=== PATIENT | male | born 2005 ===

== ENCOUNTER 2025-04-26 11:00 | Inpatient (IN) | payer OTHER ==
[~2025-04-26] VITALS: Ht 185.4 cm; Wt 56.7 kg
[2025-04-26 14:25] LABS: COVID-19 AG NEGATIVE (NEGATIVE)
[2025-04-26 15:11] LABS: RH POSITIVE
[2025-05-04] MEDS ORDERED: VANCOMYCIN HCL 1,000 MG VIAL IR ONE (19:30)
[2025-05-04] MEDS ORDERED: CEFAZOLIN SODIUM 1,000 MG VIAL IV ONE (19:30)
[2025-05-04] MEDS ORDERED: TRANEXAMIC ACID 100MG/1ML (1000MG) AMPUL IV ONE ×2 (19:30)
[2025-05-04] MEDS ORDERED: ONDANSETRON HCL 2 MG/ML VIAL IV PRN (20:45)
[2025-05-04] MEDS ORDERED: OxyCODONE HCL 5 MG TABLET (ROXICODONE) PO PRN (20:45)
[2025-05-04] MEDS ORDERED: SODIUM CHLORIDE 0.45 % 1,000 ML IV SCH (20:45)
[2025-05-04] MEDS ORDERED: MORPHINE SULFATE 4 MG/ML CARTRIDGE IV PRN (20:45)
[2025-05-04] MEDS ORDERED: CELECOXIB 200 MG CAPSULE PO SCH (21:00)
[2025-05-04] MEDS ORDERED: CEFAZOLIN SODIUM 1,000 MG VIAL IJ ONE (21:30)
[2025-05-04] MEDS ORDERED: GENTAMICIN SULFATE 40 MG/ML VIAL IR ONE (21:45)
[2025-05-04] MEDS ORDERED: MORPHINE SULFATE 4 MG/ML VIAL IV ONE ×2 (23:10→23:40)
[2025-05-04] MEDS ORDERED: ONDANSETRON HCL 2 MG/ML VIAL IV ONE (23:15)
[2025-05-05] MEDS ORDERED: ACETAMINOPHEN 500 MG GEL..CAP PO SCH
[2025-05-05] MEDS ORDERED: MORPHINE SULFATE 4 MG/ML VIAL IV ONE ×2 (00:10→04:10)
[2025-05-05] MEDS ORDERED: CEFAZOLIN SODIUM 1,000 MG VIAL IV SCH (01:00)
[2025-05-05] MEDS ORDERED: GABAPENTIN 300 MG CAPSULE PO SCH (01:00)
[2025-05-05 06:43] LABS: BASO % 0.1 % (0.1-1.2); EOS # 0.00 (0.04-0.54); EOS % 0.0 % (0.7-7.0); LYMPH # 1.59 (1.18-3.74); LYMPH % 11.8 % (19.3-53.1); MEAN PLATELET VOLUME 9.40 fl (9.4-12.4); MONO # 1.06 (0.24-0.82); MONO % 7.9 % (4.7-12.5); NEUT # 10.79 (1.56-6.13); NEUT % 79.9 % (34.0-71.1); RED CELL DISTRIBUTION WIDTH 13.9 % (11.6-14.4)
[2025-05-05] MEDS ORDERED: LEVOFLOXACIN750 MG PO (08:22)
[2025-05-05] MEDS ORDERED: ASA325 M1 PO (08:22)
[2025-05-05] MEDS ORDERED: PERCOCET 5-3251 EACH PO (08:22)
[2025-05-05] MEDS ORDERED: SENNOSIDES 1 TAB TABLET PO SCH (09:00)
[2025-05-05] MEDS ORDERED: APIXABAN 2.5 MG TABLET PO SCH (09:00)
[2025-05-06] MEDS ORDERED: IRON FUM,PS/FOLIC ACID/VITC/B3 1 CAP CAPSULE PO SCH (09:00)
== END 2025-05-05 16:24 | disposition home or self-care (01) | DRG 481 ==
LOC: O/R 05-04 10:42 → SURH 05-04 11:00 → PED 05-05 07:46 → O/R 05-05 14:00
PROVIDERS: ADMIT Orthopaedic Surgery; ATTEND Orthopaedic Surgery
PROC: 0QP604Z Removal of Internal Fixation Device from Right Upper Femur, Open Approach (ICD-10-PCS; 2025-05-04)
PROC: 0Q8 Lower Bones, Division (ICD-10-PCS; 2025-05-04)
PROC: 0QU60JZ Supplement Right Upper Femur with Synthetic Substitute, Open Approach (ICD-10-PCS; 2025-05-04)
PROC: 0QHY0MZ Insertion of Bone Growth Stimulator into Lower Bone, Open Approach (ICD-10-PCS; 2025-05-04)
PROC: 0QS606Z Reposition Right Upper Femur with Intramedullary Internal Fixation Device, Open Approach (ICD-10-PCS; principal; 2025-05-04 19:00)
DX: S72.301A Unspecified fracture of shaft of right femur, initial encounter for closed fracture (principal); S72.3 Fracture of shaft of femur; T84.84XA Pain due to internal orthopedic prosthetic devices, implants and grafts, initial encounter; Z96.698 Presence of other orthopedic joint implants; Y65.8 Other specified misadventures during surgical and medical care
CPT/HCPCS: 27506; 15777; 20680; 20902; 20975; 27450; E0749